=== PATIENT | female | born 1945 | race Caucasian/White ===

== ENCOUNTER → 2020-11-15 10:30 | Outpatient (BNVA) | payer MEDICARE, SELFPAY | PROVIDERS: PCP Internal Medicine; Referring Provider Internal Medicine; Visit Provider Urology | DX: N39.0 Urinary tract infection, site not specified (principal); N28.1 Cyst of kidney, acquired | CPT/HCPCS: Q3014 ==

== ENCOUNTER → 2021-05-11 10:39 | Outpatient (BNVA) | payer MEDICARE, SELFPAY | PROVIDERS: Visit Provider Urology | DX: N39.0 Urinary tract infection, site not specified (principal); N20.0 Calculus of kidney | CPT/HCPCS: 99212 ==

== ENCOUNTER 2021-07-30 09:51 | Outpatient (REF) | payer MEDICARE, SELFPAY ==
[2021-07-30 13:02] LABS: Appearance Urine CLEAR; Color Urine STRAW; Glucose Urine UA NEG (NEG); Leukocyte Esterase Urine NEG (NEG); Nitrite Urine NEG (NEG); Specific Gravity - Urine <= 1.005 (1.005-1.025); Urine Blood 1+ (NEG); Urine Ketones NEG (NEG); Urine Protein NEG (NEG-TRACE)
[2021-07-30 13:11] LABS: WBC Urine 0 /HPF (0-4)
== END 2021-07-30 09:52 | disposition home or self-care (01) ==
LOC: HO.LAB 09:51
PROVIDERS: PCP Internal Medicine; Visit Provider Urology
DX: N39.0 Urinary tract infection, site not specified (principal)
CPT/HCPCS: 81001; 87086

== ENCOUNTER → 2021-09-26 10:50 | Outpatient (BNVA) | payer MEDICARE, SELFPAY | PROVIDERS: PCP Internal Medicine | DX: N20.0 Calculus of kidney (principal); N39.0 Urinary tract infection, site not specified; M81.0 Age-related osteoporosis without current pathological fracture; Z88.2 Allergy status to sulfonamides; Z88.8 Allergy status to other drugs, medicaments and biological substances; J30.89 Other allergic rhinitis; Z91.041 Radiographic dye allergy status; Z91.02 Food additives allergy status; Z91.011 Allergy to milk products | CPT/HCPCS: 99212 ==

== ENCOUNTER 2023-07-03 13:38 | Outpatient (AMB) | payer MEDICARE, SELFPAY ==
--- NOTE | 2023-07-03 13:39 | A.OFFVIS_ITS ---
Intake Intake Visit Reasons: RE-establish care/recurrent UTI's Intake Note: Patient presents for follow up recurrent uti/kidney stone Urology Medications: vitamin b6, ? allopurinol and methenamine Blood Thinner: none PVR:49ml's Data Reviewer Required: No Accompanied by: Self / Same As Patient Allergies mold [MOLD] Allergy (Mild, Verified 07/03/23 14:48) SNEEZING Sulfa (Sulfonamide Antibiotics) [SULFA (SULFONAMIDE ANTIBIOTICS)] Allergy (Mild, Verified 07/03/23 14:48) GI UPSET, rash yeast, dried [YEAST] Allergy (Mild, Verified 07/03/23 14:48) GI UPSET ciprofloxacin [From CIPRO] Adverse Reaction (Mild, Verified 07/03/23 14:48) GI UPSET erythromycin base [ERYTHROMYCIN BASE] Adverse Reaction (Mild, Verified 07/03/23 14:48) GI UPSET DAIRY PRODUCTS Allergy (Mild, Uncoded 07/03/23 14:48) GI UPSET ivp contrast Allergy (Unknown, Uncoded 07/03/23 14:48) rash yeast, dairy, soy Allergy (Unknown, Uncoded 07/03/23 14:48) digestive issue Medication List - Last Reconciled 07/03/23 by OLLIE Ashby- allopurinol 100 mg PO DAILY 90 days ascorbic acid (vitamin C) 1,000 mg PO DAILY 90 days calcium carbonate (Calcium 500) 500 mg PO DAILY cetirizine (Zyrtec) 10 mg PO DAILY PRN cranberry extract 1,300 mg PO DAILY dicyclomine 10 mg PO DAILY PRN esomeprazole magnesium (Nexium) 20 mg PO DAILY methenamine hippurate 1 g PO DAILY 90 days nitrofurantoin macrocrystal (Macrodantin) 100 mg PO BEDTIME 90 days nitrofurantoin macrocrystal 100 mg PO BID 5 days promethazine 25 mg PO Q8H PRN pyridoxine (vitamin B6) 100 mg PO DAILY HPI HPI Comments History of Present Illness Details Melanie is a very pleasant 78-year-old female patient of Dr. Benton. She has a past medical history of IBS, osteoporosis, nephrolithiasis, renal cysts, and recurrent urinary tract infections. She presents to the office today for follow-up of her recurrent urinary tract infections. In discussion with the patient today she reports to be doing and feeling well. She reports also following up with Urology in [place] where she lives from September until April. She reports when on methenamine and vitamin-C she has not had any urinary tract infections. However, has recently ran out of her methenamine and experienced 1 urinary tract infection at which time she was prescribed Macrobid in symptoms have since resolved. She currently denies any UTI like symptoms. She discusses following up with yearly KUB these with her urologist in [place]. She continues with vitamin B6 and drinking plenty of water daily. When asked she currently denies urinary urgency, urinary frequency, incontinence, nocturia, hematuria, dysuria, foul smelling urine, changes to urinary stream, flank pain, fever, and or chills. She is happy with her current voiding parameters. In office urinalysis results reviewed with the patient today. PVR 49 mL. She otherwise offers no other issues or concerns at this time. [facility] Medical History IBS (irritable bowel syndrome) Osteoporosis Recurrent UTI Renal cyst Renal stones UTI (urinary tract infection) Surgical History History of left cataract surgery Family History Father No problems noted. Mother Dementia Social History Alcohol intake: never Patient Tobacco Use Status: Never used Tobacco Review of Systems Eyes Reports no additional complaints ENT Reports no additional complaints Card Reports no additional complaints Resp Reports no additional complaints GI Reports as per HPI Reports as per HPI Musc Reports no additional complaints Neuro Reports no additional complaints Psych Reports no additional complaints Endo Reports no additional complaints Nando/Lymph Reports no additional complaints Aller/Immun Reports no additional complaints Physical Exam Const General: cooperative, healthy appearing, comfortable, no acute distress, well developed, alert and awake Orientation/consciousness: patient oriented x3 Limitations: no limitations HEENT Head: Yes normal to inspection, Yes normocephalic and Yes atraumatic Ears: hearing grossly normal bilaterally Eyes General: appearance normal, both eyes and all related structures Neck Neck: Yes normal visual inspection and Yes trachea midline Chest Chest palpation & inspection: normal inspection of the chest Resp Effort & Inspection: normal respiratory effort and able to speak in complete sentences Cardio Rate: regular rate GI Inspection: Yes normal to inspection General: Yes no CVA tenderness Back/Spine/Pelvis Back: no CVA tenderness Skin General skin exam: no rashes or lesions noted Neuro General: patient oriented x3 Extrem General: Yes normal to inspection Psych Appearance: grossly normal and well kempt Mental Status: mental status grossly normal Speech and movement: Normal speech and movement present and Clear speech present Affect: normal affect Attitude: cooperative Thought process: Normal thought process present Thought content: Normal thought content present Insight: Good insight present (Psych) Judgement: Good judgement present (Psych) Office Procedures Post Void Residual Post Residual Void Post Void Residual (PVR): 49 [id number]-[id number] Void Residual by ultrasound Results AMB Urinalysis, Automated UA Leukoctes 0 Mony/uL Last Edit by Chemo Beanies on 07/03/23 14:05 UA Nitrite Last Edit by Chemo Beanies on 07/03/23 14:05 UA Urobilinogen 0.2 mg/dL Last Edit by Chemo Beanies on 07/03/23 14:05 UA Protein 0 mg/dL Last Edit by Chemo Beanies on 07/03/23 14:05 UA pH 7.0 Last Edit by Chemo Beanies on 07/03/23 14:05 UA Blood 10 Kaden/uL Last Edit by Chemo Beanies on 07/03/23 14:05 UA Specific [place] 1.010 Last Edit by Chemo Beanies on 07/03/23 14:05 UA Ketone Last Edit by Chemo Beanies on 07/03/23 14:05 UA Bilirubin 0 mg/dL Last Edit by Chemo Beanies on 07/03/23 14:05 UA Glucose 0 mg/dL Last Edit by Chemo Beanies on 07/03/23 14:05 Results Reviewed Results Reviewed: Laboratory Last Values Urine pH (Auto) 7.0 07/03/23 13:44 Specific [place] (Auto) 1.010 07/03/23 13:44 Urine Protein (Auto) 0 mg/dL 07/03/23 13:44 Glucose (UA)(Auto) 0 mg/dL 07/03/23 13:44 Urine Blood (Auto) 10 Kaden/uL 07/03/23 13:44 Urine Bilirubin (Auto) 0 mg/dL 07/03/23 13:44 Urine Urobilinogen (Auto) 0.2 mg/dL 07/03/23 13:44 Leukocyte Esterase (Auto) 0 Mony/uL 07/03/23 13:44 Assessment & Plan Assessment & Plan (1) Recurrent UTI: Code(s): N39.0 - Urinary tract infection, site not specified (2) Renal cyst: Code(s): N28.1 - Cyst of kidney, acquired (3) Nephrolithiasis: Code(s): N20.0 - Calculus of kidney Plan In office urinalysis results reviewed with the patient today; as noted above. PVR 49 mL. Continue methenamine, vitamin-C, and vitamin B6 daily as discussed and prescribed; refills provided Discussed obtaining retroperitoneal ultrasound for further assessment and evaluation of renal cysts, nephrolithiasis, and history of recurrent urinary tract infections; however patient discusses obtaining surveillance imaging with urologist in [place] and as she has no bothersome symptoms at this time she does not wish to have imaging at this time. She will have last office notes from urologist faxed to our office our fax information provided She is happy with her current voiding parameters. Discussed UTI prevention increasing fluid intake, behavioral therapy with timed voiding, perineal hygiene and postcoital voiding, and management of constipation with stool softeners and increased fiber intake. Follow-up in April once back from [place]; or sooner with any issues, concerns, or questions. Orders: Orders AMB Urinalysis Automated Today Z13.9 - Encounter for screening, unspecified AMB Post Void Residual by ultrasound Today N39.0 - Urinary tract infection, site not specified Medications: New nitrofurantoin macrocrystal must administer with a meal/food 100 mg PO BID 10 caps 3RF 5 days N39.0 - Urinary tract infection, site not specified Refilled methenamine hippurate 1 g PO DAILY 90 tabs 3RF 90 days N39.0 - Urinary tract infection, site not specified Discontinued nitrofurantoin macrocrystal (Macrodantin) must administer with a meal/food Discontinued Reason: Doctor's Order 100 mg PO BEDTIME 90 days 90 caps 1RF Patient Instructions: The patient had an opportunity to ask questions regarding the treatment plan. All questions were answered. Physical exam, labs, and imaging were discussed and reviewed in detail. As well as risks, benefits, and discussion of treatment choices. No major barriers to understanding were identified. The patient expressed understanding and agreement with the above treatment plan. The patient was made aware they should contact our office by phone for worsening of their current condition, the appearance of new symptoms, or with any questions or concerns. Compliance is encouraged with any medications and follow up testing that is ordered. It is a privilege to be allowed the opportunity to participate in? your urological care.? Again, if you have any questions or concerns If you have any questions or concerns please do not hesitate to contact me. The office is [phone]. This note is constructed using voice recognition software. While every effort has been made to ensure accuracy laminating machine operator errors may have been included. Yours sincerely, MIRIAM Ashby Coding Level of Care Code Est Pt Level 3 (00867) Diagnoses Recurrent UTI N39.0 Renal cyst N28.1 Nephrolithiasis N20.0 CPT Codes Post Residual Void - PVR CPT Code: 20162-Ixlz Void Residual by ultrasound ([id number])
== END 2023-07-03 14:21 | disposition home or self-care (01) ==
PROVIDERS: PCP Internal Medicine; Visit Provider Nurse Practitioner Family
DX: N39.0 Urinary tract infection, site not specified (principal); N28.1 Cyst of kidney, acquired; N20.0 Calculus of kidney; Z13.9 Encounter for screening, unspecified
CPT/HCPCS: 99213

== ENCOUNTER → 2023-07-03 13:38 | Outpatient (BNVA) | payer MEDICARE, SELFPAY | PROVIDERS: PCP Internal Medicine; Visit Provider Nurse Practitioner Family | DX: N39.0 Urinary tract infection, site not specified (principal); N28.1 Cyst of kidney, acquired; N20.0 Calculus of kidney | CPT/HCPCS: 51798; 81003; 99212 ==

== ENCOUNTER 2024-06-25 11:45 | Outpatient (AMB) | payer MEDICARE, SELFPAY ==
--- NOTE | 2024-06-25 12:02 | MHC.OFFVIS ---
Intake Visit Reasons: follow up/recurrent UTIs Intake Note: Patient presents for follow up recurrent uti Urology Medications: methenamine Blood Thinner: none PVR: 18ml's Leather Toggler Required: No Accompanied by: Self / Same As Patient Allergies mold [MOLD] Allergy (Mild, Verified 06/25/24 12:13) SNEEZING Sulfa (Sulfonamide Antibiotics) [SULFA (SULFONAMIDE ANTIBIOTICS)] Allergy (Mild, Verified 06/25/24 12:13) GI UPSET, rash yeast, dried [YEAST] Allergy (Mild, Verified 06/25/24 12:13) GI UPSET ciprofloxacin [From CIPRO] Adverse Reaction (Mild, Verified 06/25/24 12:13) GI UPSET erythromycin base [ERYTHROMYCIN BASE] Adverse Reaction (Mild, Verified 06/25/24 12:13) GI UPSET DAIRY PRODUCTS Allergy (Mild, Uncoded 06/25/24 12:13) GI UPSET ivp contrast Allergy (Unknown, Uncoded 06/25/24 12:13) rash yeast, dairy, soy Allergy (Unknown, Uncoded 06/25/24 12:13) digestive issue HPI Comments Details: Melanie is a very pleasant 79-year-old female patient of Dr. Benton. She has a past medical history of IBS, osteoporosis, nephrolithiasis, renal cysts, and recurrent urinary tract infections. She presents to the office today for follow-up of her recurrent urinary tract infections. In discussion with the patient today she reports to be doing and feeling well. She reports also following up with Urology in [place] where she lives from September until April. She reports having followed up with urologist [facility] in January as she believes she passed a kidney stone. She currently denies any bothersome urinary issues or concerns. She reports compliance with methenamine and vitamin-C as prescribed. She has not had any UTIs and or UTI like symptoms since her last office visit here 1 year ago. In office urinalysis results reviewed with the patient today. PVR 18 mL. She continues with vitamin B6 and drinking plenty of water daily. When asked she currently denies urinary urgency, urinary frequency, incontinence, nocturia, hematuria, dysuria, foul smelling urine, changes to urinary stream, flank pain, fever, and or chills. She is happy with her current voiding parameters. She otherwise offers no other issues or concerns at this time. [facility] Medical History Renal cyst Recurrent UTI UTI (urinary tract infection) IBS (irritable bowel syndrome) Osteoporosis Renal stones Surgical History History of left cataract surgery Family History Father No problems noted. Mother Dementia Social History Alcohol intake: never Patient Tobacco Use Status: Never used Tobacco Review of Systems Eyes Reports no additional complaints ENT Reports no additional complaints Card Reports no additional complaints Resp Reports no additional complaints GI Reports as per HPI Reports as per HPI Musc Reports no additional complaints Neuro Reports no additional complaints Psych Reports no additional complaints Endo Reports no additional complaints Nando/Lymph Reports no additional complaints Aller/Immun Reports no additional complaints Physical Exam Const General: cooperative, healthy appearing, comfortable, no acute distress, well developed, alert and awake Orientation/consciousness: patient oriented x3 Limitations: no limitations HEENT Head: Yes normal to inspection, Yes normocephalic and Yes atraumatic Ears: hearing grossly normal bilaterally Eyes General: appearance normal, both eyes and all related structures Neck Neck: Yes normal visual inspection and Yes trachea midline Chest Chest palpation & inspection: normal inspection of the chest Resp Effort & Inspection: normal respiratory effort and able to speak in complete sentences Cardio Rate: regular rate GI Inspection: Yes normal to inspection General: Yes no CVA tenderness Back/Spine/Pelvis Back: no CVA tenderness Skin General skin exam: no rashes or lesions noted Neuro General: patient oriented x3 Extrem General: Yes normal to inspection Psych Appearance: grossly normal and well kempt Mental Status: mental status grossly normal Speech and movement: Normal speech and movement present and Clear speech present Affect: normal affect Attitude: cooperative Thought process: Normal thought process present Thought content: Normal thought content present Insight: Good insight present (Psych) Judgement: Good judgement present (Psych) Office Procedures Post Void Residual Post Residual Void Post Void Residual (PVR): 18 [id number]-[id number] Void Residual by ultrasound Results AMB Urinalysis, Automated UA Leukoctes 0 Mony/uL Last Edit by Sherley Moreno on 06/25/24 12:17 UA Nitrite Last Edit by Sherley Moreno on 06/25/24 12:17 UA Urobilinogen 0.2 mg/dL Last Edit by Sherley Moreno on 06/25/24 12:17 UA Protein 0 mg/dL Last Edit by Sherley Moreno on 06/25/24 12:17 UA pH 5.5 Last Edit by Sherley Moreno on 06/25/24 12:17 UA Blood 25 Kaden/uL Last Edit by Sherley Moreno on 06/25/24 12:17 UA Specific [place] 1.020 Last Edit by Sherley Moreno on 06/25/24 12:17 UA Ketone Negative Last Edit by Sherley Moreno on 06/25/24 12:17 UA Bilirubin 0 mg/dL Last Edit by Sherley Moreno on 06/25/24 12:17 UA Glucose 0 mg/dL Last Edit by Sherley Moreno on 06/25/24 12:17 Results Reviewed Results Reviewed: Laboratory Last Values Urine pH (Auto) 5.5 06/25/24 12:15 Specific [place] (Auto) 1.020 06/25/24 12:15 Urine Protein (Auto) 0 mg/dL 06/25/24 12:15 Glucose (UA)(Auto) 0 mg/dL 06/25/24 12:15 Urine Ketones (Auto) Negative 06/25/24 12:15 Urine Blood (Auto) 25 Kaden/uL 06/25/24 12:15 Urine Bilirubin (Auto) 0 mg/dL 06/25/24 12:15 Urine Urobilinogen (Auto) 0.2 mg/dL 06/25/24 12:15 Leukocyte Esterase (Auto) 0 Mony/uL 06/25/24 12:15 Assessment & Plan Assessment & Plan (1) Recurrent UTI: Code(s): N39.0 - Urinary tract infection, site not specified Category: Medical (2) Renal cyst: Code(s): N28.1 - Cyst of kidney, acquired Category: Medical (3) Nephrolithiasis: Code(s): N20.0 - Calculus of kidney Category: Medical Plan In office urinalysis results reviewed with the patient today; as noted above. PVR 18 mL. Continue methenamine, vitamin-C, and vitamin B6 daily as discussed and prescribed; refills provided Discussed obtaining retroperitoneal ultrasound for further assessment and evaluation of renal cysts, nephrolithiasis, and history of recurrent urinary tract infections; however patient discusses obtaining surveillance imaging with urologist in [place] and as she has no bothersome symptoms at this time she does not wish to have imaging at this time. She is happy with her current voiding parameters. Discussed UTI prevention increasing fluid intake, behavioral therapy with timed voiding, perineal hygiene and postcoital voiding, and management of constipation with stool softeners and increased fiber intake. Follow-up in 1 year; or sooner with any issues, concerns, and or questions. Orders: Orders AMB Post Void Residual by ultrasound Today N39.0 - Urinary tract infection, site not specified AMB Urinalysis Automated Today Z13.9 - Encounter for screening, unspecified Medications: Refilled methenamine hippurate 1 g PO DAILY 90 tabs 3RF 90 days N39.0 - Urinary tract infection, site not specified Discontinued nitrofurantoin macrocrystal must administer with a meal/food Discontinued Reason: Doctor's Order 100 mg PO BID 5 days 10 caps 3RF N39.0 - Urinary tract infection, site not specified Patient Instructions: The patient had an opportunity to ask questions regarding the treatment plan. All questions were answered. Physical exam, labs, and imaging were discussed and reviewed in detail. As well as risks, benefits, and discussion of treatment choices. No major barriers to understanding were identified. The patient expressed understanding and agreement with the above treatment plan. The patient was made aware they should contact our office by phone for worsening of their current condition, the appearance of new symptoms, or with any questions or concerns. Compliance is encouraged with any medications and follow up testing that is ordered. It is a privilege to be allowed the opportunity to participate in? your urological care.? Again, if you have any questions or concerns If you have any questions or concerns please do not hesitate to contact me. The office is [phone]. This note is constructed using voice recognition software. While every effort has been made to ensure accuracy senior buyer errors may have been included. Yours sincerely, MIRIAM Ashby Coding Level of Care Code Est Pt Level 3 (37398) Complex EM visit Add On G2211 Diagnoses Recurrent UTI N39.0 Renal cyst N28.1 Nephrolithiasis N20.0 CPT Codes Post Residual Void - PVR CPT Code: 54673-Myzq Void Residual by ultrasound ([id number])
== END 2024-06-25 12:13 | disposition home or self-care (01) ==
PROVIDERS: PCP Internal Medicine; Visit Provider Nurse Practitioner Family
DX: N39.0 Urinary tract infection, site not specified (principal); N28.1 Cyst of kidney, acquired; N20.0 Calculus of kidney; Z13.9 Encounter for screening, unspecified
CPT/HCPCS: 99213; G2211

== ENCOUNTER → 2024-06-25 11:45 | Outpatient (BNVA) | payer MEDICARE, SELFPAY | PROVIDERS: PCP Internal Medicine; Visit Provider Nurse Practitioner Family | DX: N39.0 Urinary tract infection, site not specified (principal); N28.1 Cyst of kidney, acquired; N20.0 Calculus of kidney; K58.9 Irritable bowel syndrome, unspecified | CPT/HCPCS: 51798; 81003; 99212 ==

== ENCOUNTER 2025-06-27 09:13 | Outpatient (AMB) | payer MEDICARE, SELFPAY ==
--- NOTE | 2025-06-27 09:27 | MHC.OFFVIS ---
Intake Visit Reasons: 1y follow up Intake Note: Patient presents for 1yr follow up Urology Medications: methenamine Blood Thinner: none PVR:0ml Director External Communications Required: No Accompanied by: Self / Same As Patient Allergies mold (MOLD) Allergy (Mild, Verified 06/27/25 09:49) SNEEZING Sulfa (Sulfonamide Antibiotics) (SULFA (SULFONAMIDE ANTIBIOTICS)) Allergy (Mild, Verified 06/27/25 09:49) GI UPSET, rash yeast, dried (YEAST) Allergy (Mild, Verified 06/27/25 09:49) GI UPSET ciprofloxacin (From CIPRO) Adverse Reaction (Mild, Verified 06/27/25 09:49) GI UPSET erythromycin base (ERYTHROMYCIN BASE) Adverse Reaction (Mild, Verified 06/27/25 09:49) GI UPSET DAIRY PRODUCTS Allergy (Mild, Uncoded 06/27/25 09:49) GI UPSET ivp contrast Allergy (Unknown, Uncoded 06/27/25 09:49) rash yeast, dairy, soy Allergy (Unknown, Uncoded 06/27/25 09:49) digestive issue Medication List - Last Reconciled 06/27/25 by OLLIE Ashby-CHERYL ascorbic acid (vitamin C) 1,000 mg PO DAILY 90 days calcium carbonate (Calcium 500) 500 mg PO DAILY cranberry extract 1,300 mg PO DAILY methenamine hippurate 1 g PO DAILY 90 days HPI Comments Details: Melanie is a very pleasant 80-year-old female patient of Dr. Benton. She has a past medical history of IBS, osteoporosis, nephrolithiasis, renal cysts, and recurrent urinary tract infections. She presents to the office today for follow-up of her recurrent urinary tract infections. In discussion with the patient today she reports to be doing and feeling well. She reports also following up with Urology in [facility] where she lives from September until April. However is planning to live there full-time within the next upcoming months. She discusses ongoing surveillance monitoring with [facility] with urologist and was told in November it was stable. She denies having had any bothersome urinary issues or concerns since her last office visit here. She reports compliance with methenamine and vitamin-C. She denies having had any UTIs and or UTI like symptoms. In office urinalysis results reviewed with the patient today. PVR 0 mL. She currently denies any bothersome urinary issues or concerns. She continues with vitamin B6 and drinking plenty of water daily. When asked she currently denies urinary urgency, urinary frequency, incontinence, nocturia, hematuria, dysuria, foul smelling urine, changes to urinary stream, flank pain, fever, and or chills. She is happy with her current voiding parameters. She otherwise offers no other issues or concerns at this time. [facility] Medical History Renal cyst Recurrent UTI UTI (urinary tract infection) IBS (irritable bowel syndrome) Osteoporosis Renal stones Surgical History History of left cataract surgery Family History Father No problems noted. Mother Dementia Social History Alcohol intake: never Patient Tobacco Use Status: Never used Tobacco Review of Systems Eyes Reports no additional complaints ENT Reports no additional complaints Card Reports no additional complaints Resp Reports no additional complaints GI Reports as per HPI Reports as per HPI Musc Reports no additional complaints Neuro Reports no additional complaints Psych Reports no additional complaints Endo Reports no additional complaints Nando/Lymph Reports no additional complaints Aller/Immun Reports no additional complaints Physical Exam Const General: cooperative, healthy appearing, comfortable, no acute distress, well developed, alert and awake Orientation/consciousness: patient oriented x3 Limitations: no limitations HEENT Head: Yes normal to inspection, Yes normocephalic and Yes atraumatic Ears: hearing grossly normal bilaterally Eyes General: appearance normal, both eyes and all related structures Neck Neck: Yes normal visual inspection and Yes trachea midline Chest Chest palpation & inspection: normal inspection of the chest Resp Effort & Inspection: normal respiratory effort and able to speak in complete sentences Cardio Rate: regular rate GI Inspection: Yes normal to inspection General: Yes no CVA tenderness Back/Spine/Pelvis Back: no CVA tenderness Skin General skin exam: no rashes or lesions noted Neuro General: patient oriented x3 Extrem General: Yes normal to inspection Psych Appearance: grossly normal and well kempt Mental Status: mental status grossly normal Speech and movement: Normal speech and movement present and Clear speech present Affect: normal affect Attitude: cooperative Thought process: Normal thought process present Thought content: Normal thought content present Insight: Good insight present (Psych) Judgement: Good judgement present (Psych) Assessment & Plan Assessment & Plan (1) Nephrolithiasis: Code(s): N20.0 - Calculus of kidney Category: Medical (2) Recurrent UTI: Code(s): N39.0 - Urinary tract infection, site not specified Category: Medical Plan In office urinalysis results reviewed with the patient today; as noted above. PVR 0 mL. She currently denies any bothersome urinary issues or concerns. She reports be happy with current voiding parameters. Start Estrace cream as discussed and prescribed. Continue methenamine, vitamin-C, and vitamin B6 as prescribed. Will continue with surveillance monitoring. We discussed importance of adequate hydration relation to recurrent urinary tract infections, nephrolithiasis, as well as overall health and well-being. All questions were answered. We did discussed further workup of nephrolithiasis to include Litholink and labs however patient declines at this time as she does not feel this is necessary in his had stability in nephrolithiasis with urology in [facility]. Follow-up in 6-10 months or sooner with any issues, concerns, and or questions. Medications: New estradiol 0.01%(0.1mg/gram) (Estrace) Apply a pea-sized amount to urethra daily x1 month and then 3 times per week thereafter 1 g vaginal 3XW 42.5 grams 3RF 90 days Patient Instructions: The patient had an opportunity to ask questions regarding the treatment plan. All questions were answered. Physical exam, labs, and imaging were discussed and reviewed in detail. As well as risks, benefits, and discussion of treatment choices. No major barriers to understanding were identified. The patient expressed understanding and agreement with the above treatment plan. The patient was made aware they should contact our office by phone for worsening of their current condition, the appearance of new symptoms, or with any questions or concerns. Compliance is encouraged with any medications and follow up testing that is ordered. It is a privilege to be allowed the opportunity to participate in? your urological care.? Again, if you have any questions or concerns If you have any questions or concerns please do not hesitate to contact me. The office is [phone]. This note is constructed using voice recognition software. While every effort has been made to ensure accuracy bloom conveyor operator errors may have been included. Yours sincerely, Falguni Wan [employer] Coding Level of Care Code Est Pt Level 4 (73431) Complex EM visit Add On G2211 Diagnoses Nephrolithiasis N20.0 Recurrent UTI N39.0
== END 2025-06-27 10:02 | disposition home or self-care (01) ==
LOC: HO.HUSH 09:14
PROVIDERS: PCP Internal Medicine; Visit Provider Nurse Practitioner Family
DX: N20.0 Calculus of kidney (principal); N39.0 Urinary tract infection, site not specified
CPT/HCPCS: 99214; G2211

== ENCOUNTER → 2025-06-27 09:13 | Outpatient (BNVA) | payer MEDICARE, SELFPAY | PROVIDERS: PCP Internal Medicine; Visit Provider Nurse Practitioner Family | DX: N20.0 Calculus of kidney (principal); N39.0 Urinary tract infection, site not specified | CPT/HCPCS: 51798; 81003; 99212 ==